=== PATIENT | male | born 1950 | race Caucasian/White ===

== ENCOUNTER → 2020-11-05 08:52 | Outpatient (CLI) | payer MEDICARE, SELFPAY ==
[2020-11-05 09:59] LABS: COVID19 -Nasal RAPID Negative (Negative)
== END ==
PROVIDERS: Visit Provider Physician Assistant
DX: Z11.59 Encounter for screening for other viral diseases (principal)
CPT/HCPCS: 87635

== ENCOUNTER 2020-11-06 06:14 | Inpatient (IN) | payer MEDICARE, SELFPAY ==
[2020-10-31 11:54] VITALS: BMI 21.9
[2020-11-06] VITALS (20 sets, daily range): BP systolic 85–135; BP diastolic 36–73; PULSE 63–77; RESP 10–19; TEMP 36.1–36.7; O2SAT 63–99; BMI 21.4
--- NOTE | 2020-11-06 | DI.RAD.S_ITS ---
PROCEDURE: XR LUMBAR SPINE 2-3V INDICATIONS: L3-4, L4-5,XLIF...... L5-S1 , TLIF TECHNIQUE: 3 views of the lumbar spine were acquired. COMPARISON: LAWRENCE Aguilar, L-SPINE 2-3 VIEWS, 04/13/2007, 16:05. FINDINGS: 3 spot fluoroscopic images demonstrating posterior spinal fixation at L3-L4, L4-L5, L5-S1, and interbody cage grafts. Hardware appears intact. Expected intraoperative alignment. Dictated by: Stephon Grace M.D. on 11/06/2020 at 13:10 Approved by: Stephon Grace M.D. on 11/06/2020 at 13:12
[2020-11-06] MEDS: LACTATED RINGERS 1,000 ML 42 ML IV ×2 (07:01→09:53)
[2020-11-06] MEDS: ACETAMINOPHEN 325 MG TABLET 975 MG PO (07:10)
--- NOTE | 2020-11-06 07:21 | PM.PREOP ---
Pre-operative Note COVID-19 COVID-19 status: Negative Result date/Date tested (Pos, Neg/Pending): 11/05/20 Interval Note History & Physical reviewed/Exam performed by Physician: Yes Changes to H&P: No
[2020-11-06] MEDS: CEFAZOLIN 2 GM/100 ML FROZ.PIGGY IV ×3 (07:57→20:32)
--- NOTE | 2020-11-06 08:30 | SUR.OPER ---
Right lateral on padded OR table. Head on pillow, gel axillary roll, pillow to support left arm. Legs flexed, pillows between legs, gel pad under down leg and ankle. Multiple passes of 3 inch cloth tape across shoulder, hip, upper and lower legs to secure patient on OR table.
--- NOTE | 2020-11-06 08:30 | SUR.OPER ---
Prone on spine table, head in foam head support, padded chest and pelvic supports, gel pad at knees, lower legs supported by pillows; nipples, genitalia and toes free of pressure, arms secured on foam padded arm boards at <90 degrees abduction. Tape over blanket at thigh secured to table.
[2020-11-06] MEDS: VANCOMYCIN 1,000 MG VIAL 1000 MG TOP (08:39)
[2020-11-06] MEDS: THROMBIN (RECOMBINANT) 5,000 UNIT VIAL 5000 UNIT TOP (08:39)
[2020-11-06] MEDS: BUPIVACAINE 0.5% (PF) 4 ML, MORPHINE-PF 4 MG, BUTORPHANOL 1 MG, fentaNYL 100 MCG INJ (08:40)
[2020-11-06] MEDS: SODIUM CHLORIDE 0.9% 1,000 ML, GENTAMICIN 80 MG IRR ×2 (08:41→08:42)
--- NOTE | 2020-11-06 13:07 | P.OP_ITS ---
Operative Date/Time/Diagnoses Date of procedure: 11/06/20 Time of procedure: 13:07 Pre-op diagnosis: Lumbar stenosis with radiculopathy Lumbar scoliosis Post-op diagnosis: same Procedure & Clinicians Procedure: L3-4, L4-5 anterior fusion with cages L3-4, L4-5 posterior fusion with cages L5-S1 TLIF (posterior/posterior interbody fusion) with cage. L3, L4, L5, S1 screws L3-4, L4-5, L5-S1 laminectomies Use of microscope Iliac crest bone graft aspirate Placement of epidural catheter Same procedure as scheduled: Yes Indications: [age] year old male with intractable pain from stenosis. They had failed conservative management and requested operative intervention. Risks and benefits of surgery were discussed and appropriate consents were obtained. Surgeon: Miguel Angel Saleh Culled Fruit Packer: Mariana Gonzalez Anesthesia Type: General Operative Notes Findings: None Closure Type: primary Specimen(s): none sent Prosthetic devices, grafts, tissues, transplants, or devices: NuVasive MAS Reline screws and XLIF cages Globus Rise cage Applied: catheter Estimated Blood Loss (mL): 50 Procedure in detail: Patient was brought to the operating room and intubated on the table. Time-out was performed. They were then rolled over to the lateral decubitus position with the [id number]. The table was bent and they were taped down in the correct position. X-rays were taken to confirm a true AP and lateral. Preoperative antibiotics were given. The left flank was prepped and draped in standard sterile fashion. Using fluoroscopy, a 3 cm incision was made above the iliac crest. We bluntly dissected down with Metzenbaum scissors and split the 3 abdominal muscle layers. We dissected out the retroperitoneal space and using finger guidance, brought our 1st dilator down to the psoas muscle. Using neuromonitoring and fluoroscopy, we placed it through the psoas onto the L4-5 disc space in an anterior position and gradually pulled the dilator posteriorly along the disc space. We placed our guidewire and measured our depth for the retractor. We then dilated with the next 2 dilators and then placed our retractor over the dilators. Position was confirmed with fluoroscopy and the retractor was locked down to the bar. We opened up the retractor and checked with neuro monitoring. We then placed the sherif and again checked with neuro monitoring. The retractor was opened further and the ALL retractor was placed. An annulotomy was performed. We then performed a complete diskectomy with ring curette, pituitary, box osteotome. A Hernandes was advanced across the disc space under fluoroscopy to release the lateral annulus on the opposite side. We then used sequentially larger trials and confirmed under fluoroscopy. An XLIF cage was packed with Osteocel bone graft and impacted into the L4-5 disc space with fluoroscopy for the anterior fusion at this level. The wound was irrigated. The retractor was closed down. The sherif was removed. We carefully removed the retractor with direct visualization to make sure there was no neurovascular or abdominal injury. We then moved up to the L3-4 level. We again dilated with neural monitoring and fluoroscopy. We placed a retractor and opened this up. We performed a complete diskectomy as well as lateral release. We trialed and placed another cage with bone graft and impacted into the L3-4 space for the anterior fusion at this level. The wound was irrigated. The retractor was closed down and removed with direct visualization to make sure there is no neurovascular or abdominal injury. Final x-rays were taken. The muscle fascia was closed, superficial tissue was closed. The skin was closed. Sterile dressing was placed. The patient was then rolled over on the well-padded prone position on the Wagner table. Using fluoroscopy for localization, a 10 cm incision incision was made to the well marked left side. Bovie used to split the fascia. We then percutaneously placed Jamshidi needles down the left pedicles of L3, L4, L5, and S1 using f luoroscopy and neural monitoring. We changed this to guidewires. We then tapped and placed our screw shanks. We then opened up our retractors and cleared off the posterolateral gutters and used a bur to decorticate the sacral ala and the transverse processes. We cleared medially to expose up the lamina to the spinous process. We brought a microscope. A laminectomy was performed at L5-S1 using a bur and Kerrison rongeur is. We cleared out the central canal and primarily worked on the subarticular and foraminal stenosis on the left side. We had to perform a facetectomy to open up the neural foramen but in the end the exiting L5 nerve root was free. We also removed the subarticular stenosis from the facet and freed up the S1 nerve root traversing through the canal. We then carefully retracted the dura medially. Bipolar was used for hemostasis. An annulotomy was performed with a scalpel. We then used a series of paddles and curettes and Johanny and pituitaries to perform a complete diskectomy at L5- S1. We then packed the disc space with bone graft and impacted a globus rise cage. We opened this up under fluoroscopic guidance. We then packed more bone graft in the disc space. We then moved our retractors up to L4-5. We cleared off the midline as well as the transverse process and decorticated the process of L4. We used a bur and Kerrisons to perform a complete laminectomy at L4-5. This was exceedingly tight. We had to carefully depressed the dura and reach across the to decompress the right side. We had to perform a near facetectomy to clear out the neural foramen. At the end of this we had adequately decompress the exiting L4 root as well as the traversing L5 and S1 roots and the central canal. We then moved the retractors up to L3-4. Again we cleared off the midline and to the transverse process and decorticated the process of L3. A laminectomy was performed at L3-4 with a bur and a Kerrison. We cleared the entire canal and carefully depressed the dura to reach the opposite side. We cleared up the exiting L3 roots as well as the traversing L4, L5 and S1 roots going down in the canal. Everything was confirmed to be decompressed with the ball probe. The wound was copiously irrigated. An epidural catheter was primed with 4mL of 0.5% bupivacaine, 100 mcg fentanyl, 4 mg Duramorph, 1 mg Stadol. The dura was depressed under the cephalad lamina with a ball probe and the epidural catheter was gently advanced 6 cm cephalad. We then placed our screw heads on. We measured and placed a antonino and locked it down. The wound was copiously irrigated. A small stab incision was made over the PSIS and a Jamshidi needle was placed into the iliac crest and several mL of bone marrow was aspirated. This was mixed with our locally harvested bone graft as well as the remaining Osteocel and placed in the posterolateral gutter for fusion at L3-4 and L4-5 as well as the posterolateral portion of the L5-S1 TLIF. The fascia was then closed. The epidural was then injected without resistance. The catheter was pulled and we closed more over the fascia. We then made a 10 cm incision on the right side with fluoroscopy. We used fluoroscopy and neural monitoring to percutaneously placed Jamshidi needles down the right pedicles of L3 through S1. We used guidewires and then tapped and placed our screws. We placed a antonino and locked it down. The wound was irrigated. The fascia was closed. The wounds were again irrigated. Vancomycin powder was placed in the wounds. The superficial and skin were closed. Sterile dressing was placed. The patient was then rolled over, extubated, brought to the recovery room with no complications. Complications: none Post-operative Condition: stable Disposition: PACU Plan for aftercare: Inpatient. Up with PT. Anticipate 2-3 nights.
[2020-11-06] MEDS: OXYCODONE IR 5 MG TABLET PO ×2 (14:06→15:02)
[2020-11-06] MEDS: LACTATED RINGERS 1,000 ML 125 ML IV ×2 (15:03→23:31)
--- NOTE | 2020-11-06 15:30 | PT-IP ANOTE ---
Received PT orders and reviewed chart. Pt has had unremitting postoperative hypotension. He reports significant pain, remains groggy, and is unable to meaningfully participate with PT. Will follow up 12/16 AM.
[2020-11-06] MEDS: HYDROMORPHONE 0.5 MG INJ IV (15:38)
[2020-11-06] MEDS: ROSUVASTATIN 10 MG TABLET 20 MG PO (17:00)
[2020-11-06] MEDS: CHOLECALCIFEROL (VITAMIN D3) 1,000 UNIT TABLET 1000 UNIT PO (17:00)
[2020-11-06] MEDS: diazePAM 5 MG TABLET PO (17:06)
--- NOTE | 2020-11-06 20:08 | PC.NURSE ---
Addendum entered by Dorothy Doss R.N. 11/06/20 20:51: pt vomited 300cc, administered reglan. Original Note: Late entry: assumed care. pt's pain was uncontrolled with 10mg oxy and 0.5 dilaudid. Administered Valium, pain down to 7/10 and reports it's tolerable. pt refused his dinner. call light in reach. IVF.quinn patent.
[2020-11-06] MEDS: GABAPENTIN 600 MG TABLET PO (20:33)
[2020-11-06] MEDS: DOCUSATE 100 MG CAPSULE PO (20:33)
[2020-11-06] MEDS: SENNOSIDES 8.6 MG TABLET 17.2 MG PO (20:33)
[2020-11-06] MEDS: atenoloL 50 MG TABLET PO (20:37)
[2020-11-06] MEDS: METOCLOPRAMIDE 10 MG/2 ML INJ IV (20:42)
[2020-11-07] MEDS: METOCLOPRAMIDE 10 MG/2 ML INJ IV ×2 (02:17→11:54)
[2020-11-07] MEDS: OXYCODONE IR 5 MG TABLET PO ×3 (02:23→20:06)
--- NOTE | 2020-11-07 02:38 | PC.NURSE ---
Episode of nausea followed with emesis, 200 mL greenish opaque. Given reglan IV and oxy PO prior to episode of emesis, PO oxy present in emesis. Pt opted to wait to take IV pain medications for nausea to subsides.
[2020-11-07] MEDS: CEFAZOLIN 2 GM/100 ML FROZ.PIGGY IV (03:36)
[2020-11-07 05:27] VITALS: BP 113/57; PULSE 66; RESP 16; TEMP 36.3; O2SAT 95
[2020-11-07 05:27] LABS: Hematocrit 32.5 % (41-53)
--- NOTE | 2020-11-07 07:56 | PM.PNPO.1 ---
Subjective Subjective Date Patient Seen: 11/07/20 Time Patient Seen: 07:56 Interval history: He is doing better than yesterday. Pain is under very good control right now with oral medication. Exam Vital Signs (past 8 hours): - 11/07/20 05:27 Temperature 97.4 F L Pulse Rate 66 Respiratory Rate 16 Blood Pressure 113/57 L Pulse Oximetry 95 Oxygen Delivery Method Room Air Oxygen Flow Rate 2 Const Orientation: alert and oriented x3 Back/Spine/Pelvis Other: Minimal dry drainage. 5/5 motor both lower extremities except for mild 5-/5 left hip flexor Objective Labs Result Diagrams: 11/07/20 05:00 Labs: Laboratory Results - last 24 hr 11/07/20 05:00 Hgb 11.0 L Hct 32.5 L PFSH Medical History (Updated 10/31/20 @ 12:24 by Yaz Priest RN) Actinic keratosis Arthritis CAD (coronary artery disease) Easy bruisability Erectile dysfunction GERD (gastroesophageal reflux disease) HLD (hyperlipidemia) HTN (hypertension) Hx of coronary angiogram (12/2007) Impaired fasting glucose Myocardial infarction (2007) Skin cancer Surgical History (Updated 10/31/20 @ 12:21 by Yaz Priets RN) History of arthroplasty of right shoulder History of arthroscopy of right shoulder History of surgery History of tonsillectomy History of vasectomy Hx of cardiac cath (12/2007) Hx of heart artery stent (2007) Social History household members: none Smoking Status: Former smoker alcohol intake: current Assessment & Plan Post-op Postoperative Procedures: Procedures Operation Date: 11/06/20 07:45 Actual Procedures Side Surgeon p L3-S1 laminectomies & instrumented anterior/posterior fusion w/ bone graft Miguel Angel Saleh MD He is doing well. Were going to get him up with physical therapy today. Anticipate discharge home tomorrow or the next day.
[2020-11-07 07:57] VITALS: BP 120/72; PULSE 69; RESP 15; TEMP 36.6; O2SAT 99
[2020-11-07] MEDS: EZETIMIBE 10 MG TABLET PO (08:08)
[2020-11-07] MEDS: ONDANSETRON 4 MG/2 ML INJ IV (08:08)
[2020-11-07] MEDS: diazePAM 5 MG TABLET PO ×3 (08:08→21:00)
[2020-11-07] MEDS: DOCUSATE 100 MG CAPSULE PO ×2 (08:09→20:03)
--- NOTE | 2020-11-07 09:48 | PT.IIE ---
Current Diagnoses Other forms of scoliosis, lumbar region (11/06/20) Spinal stenosis, lumbar region with neurogenic claudication (11/06/20) Surgery Performed Operation Date: 11/06/20 07:45 Actual Procedures p L3-S1 laminectomies & instrumented anterior/posterior fusion w/ bone graft - Miguel Angel Saleh MD Surgical History (Last Updated 10/31/20 @ 12:21 by Yaz Priest, RN) History of arthroplasty of right shoulder History of arthroscopy of right shoulder History of surgery History of tonsillectomy History of vasectomy Hx of cardiac cath (12/2007) Hx of heart artery stent (2007) Medical History (Last Updated 10/31/20 @ 12:24 by Yaz Priest RN) Actinic keratosis Arthritis CAD (coronary artery disease) Easy bruisability Erectile dysfunction GERD (gastroesophageal reflux disease) HLD (hyperlipidemia) HTN (hypertension) Hx of coronary angiogram (12/2007) Impaired fasting glucose Myocardial infarction (2007) Skin cancer Physical Therapy Inpatient Evaluation/Re-Eval M1 PT/OT-IP Prior Functional Status Start: 11/06/20 15:10 Freq: NEEDED Status: Active Protocol: Document 11/07/20 09:48 AB (Rec: 11/07/20 12:12 AB [id number]) Medical Review Prior Functional Status Medical History Reviewed Yes Communication able to make needs known Mobility and Gait pt stated that he is independent with all mobilities and ambulation wtihout AD Social History Household Members none Living Arrangements House Number of Floors (Floors) One Floor Number of Stairs To Enter/Railing? 3 steps to enter without rails Home Environment High Toilet,Walk in Shower Home Equipment Front Wheel Walker,Straight Cane Additional Social History Comment has a recliner that he can sleep on if needed has an adjustable bed pt stated that he hired a caregiver/DELIVERY RN to stay with him for 2 days to assist him but can be longer if needed; stated that his son also will check on him. M2 PT-IP Current Condition Start: 11/06/20 15:10 Freq: NEEDED Status: Active Protocol: Document 11/07/20 09:48 AB (Rec: 11/07/20 12:12 AB [id number]) Physical Therapy Current Condition Current Condition Evaluation Date 11/07/20 Treatment Diagnosis s/p L3-4/L4-5 anterior/post. fusion; difficulties in walking Onset Date 12/15/20 Precautions Lumbar Precautions Log Roll,No Twisting,Limit Bending,Lifting Restriction of 10 lbs,Gait Belt above Incisional Area M3 PT-IP Subjective Start: 11/06/20 15:10 Freq: NEEDED Status: Active Protocol: Document 11/07/20 09:48 AB (Rec: 11/07/20 12:12 AB [email or web address]) Subjective Physical Therapy Visit Type Type Initial Evaluation Visit Start Time 09:48 Visit Stop Time 10:22 Total Visit Minutes 34 Number of HOME CONNECT LPN Visits 0 Physical Therapy Visit Comments Patient Comments pt is agreeable to do PT Therapy Pain Assessment Pain When Pain Assessed At Rest Pain Present Pain Present Pain Reported Location Low Back Intensity 5 Scale Used Numeric (0 - 10) Pain Management Techniques Distraction,Modification of Treatment,Re-positioning, Timing of Activity with Medications M4 PT-IP Mobility and Gait Start: 11/06/20 15:10 Freq: NEEDED Status: Active Protocol: Document 11/07/20 09:48 AB (Rec: 11/07/20 12:12 AB [email or web address]) PT-Bed Mobility Assessment Rolling Type of Rolling Log Rolling Level of Assist Standby Assistance Supine to Sit Supine to Sit Minimal Assistance,1 Person Assistance PT-Transfer Assessment Sit to and From Stand Sit to and from Stand Contact Guard Assistance,Use of Upper Extremities Equipment Transfer Assistive Device Gait Belt,Front Wheeled Walker Orthotic/Prosthetic Devices or Brace: No Transfers Transfer Destination Chair Transfer Technique ambulated using FWW Transfer Ability Level of Assist Contact Guard Assistance Comments Mobility Comments educated pt on back precautions and log roll bed mobility. completed supine to sit min A and cues. pt was able to sit on EOB SBA. completed sit to stand CGA and cues and ambulated in room using FWW CGA 50 ft. pt agreed to sit up on chair. positioned on chair. call light and table placed within reach. Gait Assessment Gait Gait Assistance Required: Contact Guard Assist Distance (Feet) 50 Able to Maintain Weight Bearing Status Yes During Gait Assistive Devices Assistive Device Gait Belt,Front Wheeled Walker Orthotic/Prosthetic Devices or Brace: No Gait Deviations General Gait Pattern Antalgic,Decreased Stride Length,Decreased Feet Clearance Factors Limiting Gait Function Factors Limiting Gait Function Decreased Activity Tolerance, Decreased Strength,Limited Range of Motion,Pain,Poor Balance PT-Balance Assessment Sitting Balance and Reactions Static Sitting Balance Ability Good Dynamic Sitting Balance Ability Good Standing Balance and Reactions Static Standing Balance Ability Fair Dynamic Standing Balance Ability Fair Device Used FWW M5 PT-IP Objective Assessments Start: 11/06/20 15:10 Freq: NEEDED Status: Active Protocol: Document 11/07/20 09:48 AB (Rec: 11/07/20 12:12 AB [id number]) Orientation Orientation/Cognition Level of Alertness Alert Orientation Name,Place,Situation Language Function Ability No Deficits Noted Safety Awareness Understands Safety Issues Memory Description No Deficits Noted Gross Range of Motion Lower Extremity ROM Assessment Within Functional Limits Strength Lower Extremity Strength Assessment Within Functional Limits Sensation Assessment Sensation Gross Sensation WNL Muscle Tone Muscle Tone WNL Yes M6 PT-IP Treatment Start: 11/06/20 15:10 Freq: NEEDED Status: Active Protocol: Document 11/07/20 09:48 AB (Rec: 11/07/20 12:12 AB [email or web address]) Physical Therapy Treatment Education Education Provided Precautions,Weight Bearing Status,Post-Op Packet,Safety M7 PT-IP Assessment and Plan Start: 11/06/20 15:10 Freq: NEEDED Status: Active Protocol: Document 11/07/20 09:48 AB (Rec: 11/07/20 12:12 AB [id number]) PT Summary Assessment and Plan Potential Rehabilitation Potential Good Status of Condition at Evaluation Stable Summary Impairments Pain,ROM,Strength,Balance,Bed Mobility,Transfers,Gait, Activity Tolerance Assessment Summary pt requiring CGA to min A with mobility and plans to go home with a caregiver to assist him. will conduct caregiver training if appropriate and pt has to complete stair climbing training prior to d/c . will continue to assess progress. Goals Bed Mobility Goal Independent Transfer Goal Independent,Front Wheeled Walker Gait Goal Independent,Front Wheel Walker Gait Distance 200 Other Goals up/down 3 steps using SPC SBA Days to Meet Goals 5 Frequency of Treatment Frequency Of Treatment Twice a Day Treatment Plan Physical Therapy Treatment Plan Bed Mobility Training,Transfer Training,Gait Training, Therapeutic Exercise,Balance Retraining,Post Op Education, Discharge Planning,Hot or Cold Pack,Neuromuscular Re-ed, Coordination Retraining,Manual Therapy Other Recommendations and Next Treatment ambulation, bed mobility, Focus stair climbing Recommendations To Nursing Amount of Assist Needed 1 Person Assist Discharge Recommendations PT Discharge Recommendations Home with Assistance Transportation Needs at Discharge Private Vehicle
[2020-11-07 11:05] VITALS: BP 113/55; PULSE 64; RESP 14; TEMP 36.3; O2SAT 96
[2020-11-07] MEDS: ACETAMINOPHEN 325 MG TABLET 975 MG PO ×2 (11:54→21:00)
--- NOTE | 2020-11-07 13:15 | PT.IPTN ---
Current Diagnoses Other forms of scoliosis, lumbar region (11/06/20) Spinal stenosis, lumbar region with neurogenic claudication (11/06/20) Surgery Performed Operation Date: 11/06/20 07:45 Actual Procedures p L3-S1 laminectomies & instrumented anterior/posterior fusion w/ bone graft - Miguel Angel Saleh MD Physical Therapy Treatment Note M2 PT-IP Current Condition Start: 11/06/20 15:10 Freq: NEEDED Status: Active Protocol: Document 11/07/20 09:48 AB (Rec: 11/07/20 12:12 AB [email or web address]) Physical Therapy Current Condition Current Condition Evaluation Date 11/07/20 Treatment Diagnosis s/p L3-4/L4-5 anterior/post. fusion; difficulties in walking Onset Date 11/06/20 Precautions Lumbar Precautions Log Roll,No Twisting,Limit Bending,Lifting Restriction of 10 lbs,Gait Belt above Incisional Area M3 PT-IP Subjective Start: 11/06/20 15:10 Freq: NEEDED Status: Active Protocol: Document 11/07/20 13:15 AB (Rec: 11/07/20 15:29 AB [email or web address]) Subjective Physical Therapy Visit Type Type Treatment Note Visit Start Time 13:15 Visit Stop Time 13:52 Total Visit Minutes 42 Number of BOTTLER HELPER Visits 0 Physical Therapy Visit Comments Patient Comments pt is agreeable to do PT Therapy Pain Assessment Pain When Pain Assessed At Rest M4 PT-IP Mobility and Gait Start: 11/06/20 15:10 Freq: NEEDED Status: Active Protocol: Document 11/07/20 13:15 AB (Rec: 11/07/20 15:29 AB [id number]) PT-Bed Mobility Assessment Rolling Type of Rolling Log Rolling Level of Assist Independent Supine to Sit Supine to Sit Standby Assistance Sit to Supine Sit to Supine Standby Assistance PT-Transfer Assessment Sit to and From Stand Sit to and from Stand Standby Assistance Equipment Transfer Assistive Device Gait Belt,Front Wheeled Walker Orthotic/Prosthetic Devices or Brace: No Comments Mobility Comments completed supine to sit log roll SBA. completed ambulation in room using FWW SBA ~ 20 ft and agreed to ambulate in the hallway and completed ~ 150 ft to the stairs using FWW SBA . completed up/down steps using SPC CGA to min A. educated pt's son on how to assist pt and pt completed stairs again with his son assisting him. pt ambulated back to his room SBA. went back to bed and completed log roll sit to supine SBA. educated son on how to don/ doff safety belt and how to assist pt. positioned pt in bed. call light and table placed within reach. Gait Assessment Gait Gait Assistance Required: Standby Assistance Distance (Feet) 150 Able to Maintain Weight Bearing Status Yes During Gait Assistive Devices Assistive Device Gait Belt,Front Wheeled Walker Orthotic/Prosthetic Devices or Brace: No Gait Deviations General Gait Pattern Decreased Stride Length, Decreased Feet Clearance Factors Limiting Gait Function Factors Limiting Gait Function Decreased Activity Tolerance, Decreased Strength,Pain,Poor Balance Comments Gait Comments pls refer to mobility section for details Stair Climbing Assessment Evaluation Level of Assist On Stairs Contact Guard Assistance, Minimal Assistance Devices Stair Climbing Assistive Devices Straight Cane Technique/Endurance Stair Climbing Technique Step to Step Number of Steps Climbed 3 Stair Climbing Set # Repetitions (reps) 2 Comments Stair Climbing Comments pls refer to mobility section M5 PT-IP Objective Assessments Start: 11/06/20 15:10 Freq: NEEDED Status: Active Protocol: Document 11/07/20 09:48 AB (Rec: 11/07/20 12:12 AB [id number]) Orientation Orientation/Cognition Level of Alertness Alert Orientation Name,Place,Situation Language Function Ability No Deficits Noted Safety Awareness Understands Safety Issues Memory Description No Deficits Noted Gross Range of Motion Lower Extremity ROM Assessment Within Functional Limits Strength Lower Extremity Strength Assessment Within Functional Limits Sensation Assessment Sensation Gross Sensation WNL Muscle Tone Muscle Tone WNL Yes M6 PT-IP Treatment Start: 11/06/20 15:10 Freq: NEEDED Status: Active Protocol: Document 11/07/20 13:15 AB (Rec: 11/07/20 15:29 AB [email or web address]) Physical Therapy Treatment Education Education Provided Precautions,Safety M7 PT-IP Assessment and Plan Start: 11/06/20 15:10 Freq: NEEDED Status: Active Protocol: Document 11/07/20 13:15 AB (Rec: 11/07/20 15:29 AB [email or web address]) PT Summary Assessment and Plan Potential Rehabilitation Potential Good Summary Impairments Pain,ROM,Strength,Balance, Coordination,Sensation,Tone, Cognition,Bed Mobility, Transfers,Gait,Activity Tolerance Progress Towards Goals Progressing Toward Goals Assessment Summary pt is progressing well with mobility and requires SBA. caregiver training conducted with son assisting pt with stairs and completed safely. pt plans to go home with a caregiver and son will be able to assist when needed but cannot stay with pt. pt may go home when medically stable. Goals Bed Mobility Goal Independent Transfer Goal Independent,Front Wheeled Walker Gait Goal Independent,Front Wheel Walker Gait Distance 200 Other Goals up/down 3 steps using SPC SBA Days to Meet Goals 5 Frequency of Treatment Frequency Of Treatment Twice a Day Treatment Plan Physical Therapy Treatment Plan Bed Mobility Training,Transfer Training,Gait Training, Therapeutic Exercise,Balance Retraining,Post Op Education, Discharge Planning,Hot or Cold Pack,Neuromuscular Re-ed, Coordination Retraining,Manual Therapy Other Recommendations and Next Treatment ambulation, bed mobility, Focus stair climbing Recommendations To Nursing Amount of Assist Needed 1 Person Assist Discharge Recommendations PT Discharge Recommendations Home with Assistance Transportation Needs at Discharge Private Vehicle
--- NOTE | 2020-11-07 15:23 | PC.NURSE ---
Ortho: Nausea this am, not able to eat, zofran given and pt reported it was helpful. Then later at lunch had nausea again and reglan given. he was able to take bites and said med was effective. Also given tylenol at lunch as he was nervous to take any oxy in case that made him feel sick to his stomach this am. later however after PT he decided to take some oxy and he reported it did help for the pain and he had no nausea with it. Having some spasms as well and received valium po x2 to help with same and nausea. he reported medication was effective. Was able to get up with PT. Tellez out and no void yet. Resting quietly at this time.
--- NOTE | 2020-11-07 15:37 | CM.DANOTE ---
Patient is a 70 year old male who was admitted on 11/06/20 for TLIF. Pt has MCR and [employer] for insurance and his PCP is not listed. EMR was reviewed. Per Ortho MD, pt tolerated procedure well and doing better and pain more controlled and likely home Thurs or Fri pending PT and progress. Per PT, recommending home with assist and POV. SW met briefly bedside with pt and he confirms he lives on [address] alone but has local supportive son on [place] and pt is independent with ADL's and fairly active at baseline and denies any use of DME for ambulation. Pt confirms that he has already hired a CG to assist at d/c and son plans to also provide assist at d/c and can likely provide transport home. Pt does not anticipate any further needs at d/c and preference is home in next day or two. Plan: SW to follow closely to confirm safe plan of home with CG and son assist and any further identified discharge planning needs. VELMA Cid Discharge Planning/Care Management CM Discharge Assessment Start: 11/07/20 15:35 Freq: Status: Active Protocol: Document 11/07/20 15:36 BF (Rec: 11/07/20 15:37 BF [id number]) Discharge Planning Assessment Assigned Unloader Operator VELMA Steward DPOA/Assigned Designee Name chnog Hendrickson Contact Information [phone] Advance Directives? Yes Advance Directives on File No History Provided By Patient,Medical Record Has Patient been admitted in last 30 No days? Prior Living Arrangements House Household Members none Type of transporation used prior to Drives own vehicle admit Independent with ADL's Yes Is patient alert and oriented? Yes Caregiver for Another No Patient/Family Preference OP PT Therapy Barriers to Discharge No Discharge Plan Home Community Services Physical Therapy Transportation Arrangement Son likely can provide transport at d/c Referrals Initiated None needed Whiteboard Updated in Patient Room with Yes name and ext. # of Unloader Operator Review Status In Process Please Provide Date Initial DC 11/07/20 Assessment Was Performed Next Review Type Continued Stay Review Pre-Anesthesia Assessment Start: 10/31/20 11:54 Freq: Status: Complete Protocol: Document 10/31/20 11:54 CAB (Rec: 10/31/20 12:45 CAB [id number]) Pre-Anesthesia Assessment Preferred Name Sudhakar Patient Information Reviewed Via Phone Assessment Assessment Completed With Patient Comment Labs/EKG done per pt 10/23/20 @ [facility], not here, COVID screen @ 11/05/20 Primary Care Provider Gracie Yeager Seen Specialist in Last 12 Months Yes Specialist Seen Rural Carrier,Dental Prosthetist, Orthopedist Primary Language Slovak Naval Gunfire Liaison Officer Required No Height 170.18 cm Weight 63.503 kg Body Mass Index (BMI) 21.9 Hearing Ability Normal Visual Assist Glasses Dentition Type Partial- Lower Barriers to Learning None Hx Anesthesia Reactions No Hx Family Anesthesia Reaction No Hx Malignant Hyperthermia No Hx Blood Transfusions No Anesthesia Review Requested Yes: Reviewed prior to scheduling alcohol intake current Smoking Status Former smoker Tobacco type cigarettes how long ago did patient quit smoking Quit age 20 Substance Use Type does not use Pain Present Pain Reported Musculoskeletal Symptoms Abnormal Gait,Back Pain, Difficulty Walking,Joint Pain, Numbness,Radiating Pain into Limb,Tingling History of Falling (Recent or History of No ) Patient is completely paralyzed or No completely immobile Mental Status Oriented to own ability Is patient on oxygen? No Does patient have ZAPIEN/SOB No Hx Sleep Apnea No Currently Taking a Beta Francis Yes: Carvedilol Can You Climb a Flight of Stairs Without Yes SOB Hx Chest Pain No Hx SOB No Hx Syncope or Dizziness No Anti-Coagulant Therapy Yes: Plavix-advised to hold 7 days prior per cardiology Has a Rural Carrier Yes: Dr. Connors-visit 08/03/20 Cardiac Testing No Hx Pacemaker/ICD No Pacemaker Rep Required? No Cardiac Clearance Received Not Applicable Comment Cardiac records scanned Diet Type At Home Regular dysphagia No Gastrointestinal Symptoms Reflux Urinary Catheter Present No Hx Urinary Self Catheterization No Diabetes No Hx Drug Resistant Organism No Presence of External or Internal Medical Yes: Right shoulder, cardiac Devices stent Have you had any close contact with No someone diagnosed with COVID-19? Marital Status Single Lives With none Prior Living Arrangements House Number of Floors (Floors) 3 or More Floors Support System Child/Children Does the Patient Have Assistance After Yes Surgery Patient Discharge Plan Description Return Home Comment Pt advised 3-4 day length of stay per surgeon Additional comment Marii ac [place] Feels Safe in Current Environment Yes Been Physically Hurt or Threatened By a No Person in Current Environment Do you have thoughts of harming yourself None or others? Are you currently considering suicide? No Do you have a plan to hurt yourself or No Plan others? Do You Have Any Spiritual Beliefs That No May Affect Your HC Choices? Do You Have Any Cultural Practices That No May Affect Your HC Choices? Who Can We Speak to About Patient's Care Family, friends Identifying Code for Release of Patient Declines to issue Information Health Care Proxy/Next of Kin Emeka (son) Health Care Proxy Emergency Contact Name Emeka (son) Emergency Contact Advance Directives? Yes: Unsure whereabouts Power of Finishing Range Operator No PAC Instructions Durable medical equipment, Medications to take/avoid, Nasal antibiotic,No ETOH/ petroleum product on skin DOS, NPO,Pre-surgical wash,Sensory aids,Sturdy shoes/comfortable clothes,Do not bring valuables and remove jewelry
[2020-11-07 15:45] VITALS: BP 139/67; PULSE 79; RESP 18; TEMP 36.9; O2SAT 98
--- NOTE | 2020-11-07 15:49 | OT.IP.EVAL ---
Current Diagnoses Other forms of scoliosis, lumbar region (11/06/20) Spinal stenosis, lumbar region with neurogenic claudication (11/06/20) Surgery Performed Operation Date: 11/06/20 07:45 Actual Procedures p L3-S1 laminectomies & instrumented anterior/posterior fusion w/ bone graft - Miguel Angel Saleh MD Past Medical History (Last Updated 10/31/20 @ 12:24 by Yaz Priest, RN) Actinic keratosis Arthritis CAD (coronary artery disease) Easy bruisability Erectile dysfunction GERD (gastroesophageal reflux disease) HLD (hyperlipidemia) HTN (hypertension) Hx of coronary angiogram (12/2007) Impaired fasting glucose Myocardial infarction (2007) Skin cancer Surgical History (Last Updated 10/31/20 @ 12:21 by Yaz Priest RN) History of arthroplasty of right shoulder History of arthroscopy of right shoulder History of surgery History of tonsillectomy History of vasectomy Hx of cardiac cath (12/2007) Hx of heart artery stent (2007) Occupational Therapy Inpatient Evaluation/Re-Eval M1 PT/OT-IP Prior Functional Status Start: 11/07/20 17:51 Freq: NEEDED Status: Active Protocol: Document 11/07/20 15:16 [facility] (Rec: 11/07/20 18:31 [facility] [id number]) Medical Review Prior Functional Status Medical History Reviewed Yes Communication able to make needs known Mobility and Gait pt stated that he is independent with all mobilities and ambulation without AD Activities of Daily Living and IADL's Pt needing increased time to do ADL's, and able to do medications and bilss on his own Social History Household Members none Living Arrangements House Number of Floors (Floors) One Floor Number of Stairs To Enter/Railing? 3 steps to enter without rails Home Environment High Toilet,Walk in Shower Home Equipment Front Wheel Walker,Straight Cane Additional Social History Comment has a recliner that he can sleep on if needed has an adjustable bed pt stated that he hired a caregiver/SALES ACCOUNT COORDINATOR to stay with him for 2 days to assist him but can be longer if needed; stated that his son also will check on him. M2 OT-IP Current Condition Start: 11/07/20 17:51 Freq: Status: Active Protocol: Document 11/07/20 15:16 [facility] (Rec: 11/07/20 18:31 [facility] [id number]) Occupational Therapy Current Condition Current Condition Evaluation Date 11/07/20 Treatment Diagnosis s/p L3-S1 laminectomies and instrumental ant/post. fusion w/bone graft Diagnosis Onset Date 11/06/20 Post Operative Precautions Lumbar Precautions Log Roll,No Twisting,Limit Bending,Lifting Restriction of 10 lbs,Gait Belt above Incisional Area M3 OT- IP Subjective and Pain Start: 11/07/20 17:51 Freq: Status: Active Protocol: Document 11/07/20 15:16 [facility] (Rec: 11/07/20 18:31 [facility] [id number]) OT- Subjective Occupational Therapy Visit Type Type Initial Evaluation Visit Start Time 15:16 Visit Stop Time 15:49 Total Visit Minutes 33 Occupational Therapy Visit Comments Patient Comments Pt agreed to work with OT, pt' s son in the room for OT eval. Patient/Caregiver Goals TO go home. OT Pain Assessment Pain When Pain Assessed During Mobility Pain Present Pain Present Pain Reported Location Low Back Intensity 4 Scale Used Numeric (0 - 10) M4 OT- IP ADL's Start: 11/07/20 17:51 Freq: Status: Active Protocol: Document 11/07/20 15:16 [facility] (Rec: 11/07/20 18:31 [facility] [id number]) OT QLF-[id number]-Motozpt Comments OT Self-Feeding Comments NOt at meal time. OT ADL-Grooming General Evaluation Grooming Ability Standby Assistance Areas Needing Assistance Retrieving/Set-up of Grooming Items Comments OT Grooming Comments VC to keep the FWW in front of him. OT ADL-Oral Care General Eval Oral Care Ability Standby Assistance Comments Oral Care Comments VC to spit into a cup versus hinge at his hips in order to lean and spit into the sink. OT ADL-Dressing General Eval Lower Body Dressing Ability Maximum Assistance Areas Needing Assistance Socks Assistive Devices Dressing Assistive Devices Scrap Crane Operator,Sock Aid Comments OT Dressing Comments Able to educate use of service vehicle operator and sock aid and able to show fair understanding, pt would benefit from more practice with LB dressing equipment. OT ADL-Toileting General Evaluation Toileting Ability Standby Assistance Comments OT Toileting Comments Pt able to appriopriately reach to wipe when simulated wiping after a bowel movement with good follow through of back precautions. OT ADL-Bathing Comments OT Bathing Comments TO shower tomorrow to best determine whether pt needs a shower chair. M5 OT- IP IADL's Start: 11/07/20 17:51 Freq: Status: Active Protocol: Document 11/07/20 15:16 [facility] (Rec: 11/07/20 18:31 [facility] [id number]) OT-Instrumental Activities of Daily Living Home Safety Awareness Awareness of Need for Assistance at Home Good Awareness Ability to Problem Solve Emergency Able to Problem Solve Situations Medication Management Medication Management Comments Pt a bit groggy and aware to double check or have supervision when taking his medications. Money Management Money Management Comments Pt a bit groggy and aware to double check or have supervision when paying bills. Meal Preparation Meal Preparation Caregiver Provides Assist Manager Green Manager Green Caregiver Provides Assist M6 OT- IP Functional Cognition Start: 11/07/20 17:51 Freq: Status: Active Protocol: Document 11/07/20 15:16 [facility] (Rec: 11/07/20 18:31 [facility] [id number]) Cognitive Factors Limiting Selfcare Function Cognitive Ability Level of Alertness Alert Patient Orientation Name,Age,Birthday,Month,Date, Year,Day of Week,Place, Situation Attention Span Ability Capable of Focused Attention, Capable of Sustained Attention Ability to Follow Commands Able to Follow One Step Commands Memory Description No Deficits Noted Safety Awareness No Deficits Noted Problem Solving Ability Needs Assist to Identify Solutions Cognitive Comments Cognitive Assessment Comments Pt not able to recall all his back precautions. Pt getting a confused as trying to put another sock on the same side. Pt forgetting the walker and initially trying to walk away from it after doing grooming needs. OT- Vision and Hearing OT- Hearing Assessment OT- Hearing Assessment WFL M7 OT- IP Mobility and Balance Start: 11/07/20 17:51 Freq: Status: Active Protocol: Document 11/07/20 15:16 [facility] (Rec: 11/07/20 18:31 [facility] [id number]) OT- Bed Mobility Assessment Rolling Type of Rolling Roll to Left Level of Assistance Standby Assistance Supine to Sit Supine to Sit Assist Standby Assistance Sit to Supine Sit to Supine Assist Standby Assistance OT-Transfer Assessment Sit to and From Stand Sit to and from Stand Standby Assistance Transfers Transfer Ability Standby Assistance Technique Transfer Destination Bed,Toilet Transfer Technique Stand Step Pivot Devices Transfer Assistive Devices Gait Belt,Front Wheeled Walker Comments Mobility Comments SBA with FWW, vc for safety awareness to keep the FWW close. OT- Balance Assessment Sitting Balance and Reactions Static Sitting Balance Ability Normal Dynamic Sitting Balance Ability Good Standing Balance and Reactions Static Standing Balance Ability Good M8 OT- IP Objective Assessments Start: 11/07/20 17:51 Freq: Status: Active Protocol: Document 11/07/20 15:16 [facility] (Rec: 11/07/20 18:31 [facility] [id number]) OT-Muscle Tone Assessment Muscle Tone WNL Yes M9 OT- IP Assessment and Plan Start: 11/07/20 17:51 Freq: Status: Active Protocol: Document 11/07/20 15:16 [facility] (Rec: 11/07/20 18:31 [facility] [id number]) OT Summary Assessment and Plan Potential Rehabilitation Potential Excellent Analytic Complexity at Evaluation Low Summary OT Impairments Functional Cognition, Functional Mobility,Grooming, Dressing,Toileting,Bathing, Toilet Transfers,Shower Transfers Progress Towards Goals Progressing Toward Goals Assessment Summary Pt low complexity and main barrier is a little groggy and not recalling his back precautions. Pt to have hired assist at home initially. To go over shower needs tomorrow for OT and looking to go home. Goals Grooming Goal Independent Dressing Goal Independent Toileting Goal Independent Bathing Goal Independent Toilet Transfer Goal Independent Shower Transfer Goal Independent Patient/Caregiver Education Goal Demonstrate Post-Op Precautions Days to Meet Goals 2 Frequency of Treatment Frequency Of Treatment Once a Day Treatment Plan OT Treatment Plan ADL Training,Functional Cognition Training,Functional Mobility,Patient/Family Education,Discharge Planning Other Treatment Recommendations and Next shower Treatment Focus Discharge Recommendations OT Discharge Recommendations Home with Assistance Home Equipment Needs Shower chair? service vehicle operator, long handled shoe horn, sock aid Transportation Needs at Discharge Private Vehicle
[2020-11-07] MEDS: ROSUVASTATIN 10 MG TABLET 20 MG PO (17:05)
[2020-11-07] MEDS: CHOLECALCIFEROL (VITAMIN D3) 1,000 UNIT TABLET 1000 UNIT PO (17:05)
[2020-11-07] MEDS: atenoloL 50 MG TABLET PO (20:03)
[2020-11-07] MEDS: GABAPENTIN 600 MG TABLET PO (20:03)
[2020-11-07] MEDS: SENNOSIDES 8.6 MG TABLET 17.2 MG PO (20:03)
[2020-11-07 20:12] VITALS: BP 148/80; PULSE 103; RESP 18; TEMP 37.2
[2020-11-07 21:00] VITALS: TEMP 37.2
[2020-11-08] VITALS (8 sets, daily range): BP systolic 125–147; BP diastolic 67–77; PULSE 72–86; RESP 16–20; TEMP 36.6–38.4; O2SAT 95–97
[2020-11-08] MEDS: ACETAMINOPHEN 325 MG TABLET 975 MG PO ×2 (05:09→17:18)
[2020-11-08] MEDS: DOCUSATE 100 MG CAPSULE PO ×2 (09:22→20:51)
[2020-11-08] MEDS: EZETIMIBE 10 MG TABLET PO (09:22)
[2020-11-08] MEDS: OXYCODONE IR 5 MG TABLET PO ×3 (09:22→20:52)
--- NOTE | 2020-11-08 09:22 | P.PN_ITS ---
Subjective Subjective Date Patient Seen: 11/08/20 Time Patient Seen: 08:00 Interval history: Pain is about 8/10 in back. He did well with PT yesterday, still 1 person assist. Exam Vital Signs (past 8 hours): - 11/08/20 04:50 11/08/20 05:09 11/08/20 05:57 Temperature 101.2 F H 101.2 F H 98.4 F Pulse Rate 85 Respiratory Rate 20 Blood Pressure 134/68 Pulse Oximetry 95 11/08/20 07:25 Temperature 98 F Pulse Rate 79 Respiratory Rate 16 Blood Pressure 125/68 Pulse Oximetry 96 Oxygen Delivery Method Room Air Oxygen Flow Rate 0 Const Orientation: alert and oriented x3 Back/Spine/Pelvis Other: mild dry drainage. 5/5 motor BLE except 5-/5 L hip flexor Objective Labs Result Diagrams: 11/07/20 05:00 [facility] Medical History (Updated 10/31/20 @ 12:24 by Yaz Priest RN) Actinic keratosis Arthritis CAD (coronary artery disease) Easy bruisability Erectile dysfunction GERD (gastroesophageal reflux disease) HLD (hyperlipidemia) HTN (hypertension) Hx of coronary angiogram (12/2007) Impaired fasting glucose Myocardial infarction (2007) Skin cancer Surgical History (Updated 10/31/20 @ 12:21 by Yaz Priest RN) History of arthroplasty of right shoulder History of arthroscopy of right shoulder History of surgery History of tonsillectomy History of vasectomy Hx of cardiac cath (12/2007) Hx of heart artery stent (2007) Social History household members: none Smoking Status: Former smoker alcohol intake: current Assessment & Plan Post-op Postoperative Procedures: Procedures Operation Date: 11/06/20 07:45 Actual Procedures Side Surgeon p L3-S1 laminectomies & instrumented anterior/posterior fusion w/ bone graft Miguel Angel Saleh MD Work on pain control. Review of the MAR shows he just had one oxycodone at 10P M. He would like to DC today if possible, but he needs better pain control and to be independent with mobility.
--- NOTE | 2020-11-08 10:22 | OT.IP.TRT ---
Current Diagnoses Other forms of scoliosis, lumbar region (11/06/20) Spinal stenosis, lumbar region with neurogenic claudication (11/06/20) Surgery Performed Operation Date: 11/06/20 07:45 Actual Procedures p L3-S1 laminectomies & instrumented anterior/posterior fusion w/ bone graft - Miguel Angel Saleh MD Occupational Therapy Treatment Note M2 OT-IP Current Condition Start: 11/07/20 17:51 Freq: Status: Active Protocol: Document 11/07/20 15:16 [facility] (Rec: 11/07/20 18:31 [facility] [id number]) Occupational Therapy Current Condition Current Condition Evaluation Date 11/07/20 Treatment Diagnosis s/p L3-S1 laminectomies and instrumental ant/post. fusion w/bone graft Diagnosis Onset Date 11/06/20 Post Operative Precautions Lumbar Precautions Log Roll,No Twisting,Limit Bending,Lifting Restriction of 10 lbs,Gait Belt above Incisional Area M3 OT- IP Subjective and Pain Start: 11/07/20 17:51 Freq: Status: Active Protocol: Document 11/08/20 10:26 [facility] (Rec: 11/08/20 10:32 [facility] [id number]) OT- Subjective Occupational Therapy Visit Type Type Treatment Note Visit Start Time 10:11 Visit Stop Time 10:22 Total Visit Minutes 11 Occupational Therapy Visit Comments Patient Comments Pt states not feeling well and not wanting to shower at this time. Patient/Caregiver Goals TO go home. OT Pain Assessment Pain When Pain Assessed At Rest Pain Present Pain Present Pain Reported Location Low Back Intensity 6 Scale Used Numeric (0 - 10) M4 OT- IP ADL's Start: 11/07/20 17:51 Freq: Status: Active Protocol: Document 11/08/20 10:26 [facility] (Rec: 11/08/20 10:32 [facility] [id number]) OT [id number] Comments OT Self-Feeding Comments NOt at meal time, no issues OT ADL-Grooming Comments OT Grooming Comments Not performed. OT ADL-Oral Care Comments Oral Care Comments NOt performed. OT ADL-Dressing Comments OT Dressing Comments Re-educated o use of LB dressing equipment and pt issued items. OT ADL-Toileting Comments OT Toileting Comments NOt having to go. OT ADL-Bathing Comments OT Bathing Comments Pt refused at this time and agreed that a shower chair at home would be helpful to have. M5 OT- IP IADL's Start: 11/07/20 17:51 Freq: Status: Active Protocol: Document 11/07/20 15:16 [facility] (Rec: 11/07/20 18:31 [facility] [id number]) OT-Instrumental Activities of Daily Living Home Safety Awareness Awareness of Need for Assistance at Home Good Awareness Ability to Problem Solve Emergency Able to Problem Solve Situations Medication Management Medication Management Comments Pt a bit groggy and aware to double check or have supervision when taking his medications. Money Management Money Management Comments Pt a bit groggy and aware to double check or have supervision when paying bills. Meal Preparation Meal Preparation Caregiver Provides Assist Machine Baster Machine Baster Caregiver Provides Assist M6 OT- IP Functional Cognition Start: 11/07/20 17:51 Freq: Status: Active Protocol: Document 11/08/20 10:26 [facility] (Rec: 11/08/20 10:32 [facility] [id number]) Cognitive Factors Limiting Selfcare Function Cognitive Comments Cognitive Assessment Comments Pt not feeling well but able to states good understanding for all back precaution needs for ADl's. Pt to have hired assist at home to help. M7 OT- IP Mobility and Balance Start: 11/07/20 17:51 Freq: Status: Active Protocol: Document 11/07/20 15:16 [facility] (Rec: 11/07/20 18:31 [facility] [id number]) OT- Bed Mobility Assessment Rolling Type of Rolling Roll to Left Level of Assistance Standby Assistance Supine to Sit Supine to Sit Assist Standby Assistance Sit to Supine Sit to Supine Assist Standby Assistance OT-Transfer Assessment Sit to and From Stand Sit to and from Stand Standby Assistance Transfers Transfer Ability Standby Assistance Technique Transfer Destination Bed,Toilet Transfer Technique Stand Step Pivot Devices Transfer Assistive Devices Gait Belt,Front Wheeled Walker Comments Mobility Comments SBA with FWW, vc for safety awareness to keep the FWW close. OT- Balance Assessment Sitting Balance and Reactions Static Sitting Balance Ability Normal Dynamic Sitting Balance Ability Good Standing Balance and Reactions Static Standing Balance Ability Good M8 OT- IP Objective Assessments Start: 11/07/20 17:51 Freq: Status: Active Protocol: Document 11/07/20 15:16 [facility] (Rec: 11/07/20 18:31 [facility] [id number]) OT-Muscle Tone Assessment Muscle Tone WNL Yes M9 OT- IP Assessment and Plan Start: 11/07/20 17:51 Freq: Status: Active Protocol: Document 11/08/20 10:26 [facility] (Rec: 11/08/20 10:32 [facility] [id number]) OT Summary Assessment and Plan Potential Rehabilitation Potential Good Analytic Complexity at Evaluation Low Summary OT Impairments Functional Cognition, Functional Mobility,Grooming, Dressing,Toileting,Bathing, Toilet Transfers,Shower Transfers Progress Towards Goals Progressing Toward Goals Assessment Summary Pt not feeling well but overall doing well from back surgery with mobility and ADl needs. Pt not wanting to shower this morning and just wanting to rest for now and hopefully to go home later this PM. Nursing aid states to assist pt with shower if needed. Pt agrees best to have a shower chair at home to use . Goals Days to Meet Goals 1 Frequency of Treatment Frequency Of Treatment Once a Day Treatment Plan OT Treatment Plan ADL Training,Functional Cognition Training,Functional Mobility,Patient/Family Education,Discharge Planning Other Treatment Recommendations and Next shower Treatment Focus Discharge Recommendations OT Discharge Recommendations Home with Assistance Home Equipment Needs Shower chair, letter sorting machine operator, long handled shoe horn, sock aid Transportation Needs at Discharge Private Vehicle
--- NOTE | 2020-11-08 11:17 | PT-IP ANOTE ---
Attempted to see patient at 11:17, patient refusing therapy d/t not feeling well states he is not sure he needs further PT at this time, but will attempt again this PM.
--- NOTE | 2020-11-08 11:25 | PC.NURSE ---
Assess- Patient complained of pain to his lower back 07/02, given oxycodone that has been effective for pain control. He was sitting up in the chair and states that he just was not feeling well. OT was going to help him shower but he wanted to lay down, states that he just does not feel well. His temp is wnl, Dr. Saleh called and said that if patients pain controlled that he might be able to go home later, also depending on how he does with physical therapy. Dressing to l.side is cdi from graft/harvest site and lower dressing is cdi. Dressings will be changed before patient does go home.
--- NOTE | 2020-11-08 13:23 | PT-IP ANOTE ---
Attempted to see patient at 13:23, he refused therapy services today and is requesting to rest d/t fever and not feeling well. Will check back with patient tomorrow AM.
[2020-11-08] MEDS: ROSUVASTATIN 10 MG TABLET 20 MG PO (17:14)
[2020-11-08] MEDS: CHOLECALCIFEROL (VITAMIN D3) 1,000 UNIT TABLET 1000 UNIT PO (17:17)
--- NOTE | 2020-11-08 17:40 | OT.IP.TRT ---
Current Diagnoses Other forms of scoliosis, lumbar region (11/06/20) Spinal stenosis, lumbar region with neurogenic claudication (11/06/20) Surgery Performed Operation Date: 11/06/20 07:45 Actual Procedures p L3-S1 laminectomies & instrumented anterior/posterior fusion w/ bone graft - Miguel Angel Saleh MD Occupational Therapy Treatment Note M2 OT-IP Current Condition Start: 11/07/20 17:51 Freq: Status: Active Protocol: Document 11/07/20 15:16 [facility] (Rec: 11/07/20 18:31 [facility] [id number]) Occupational Therapy Current Condition Current Condition Evaluation Date 11/07/20 Treatment Diagnosis s/p L3-S1 laminectomies and instrumental ant/post. fusion w/bone graft Diagnosis Onset Date 11/06/20 Post Operative Precautions Lumbar Precautions Log Roll,No Twisting,Limit Bending,Lifting Restriction of 10 lbs,Gait Belt above Incisional Area M3 OT- IP Subjective and Pain Start: 11/07/20 17:51 Freq: Status: Active Protocol: Document 11/08/20 17:44 [facility] (Rec: 11/08/20 17:52 [facility] [id number]) OT- Subjective Occupational Therapy Visit Type Type Treatment Note Visit Start Time 17:30 Visit Stop Time 17:43 Total Visit Minutes 13 Occupational Therapy Visit Comments Patient Comments Pt stopped therapist as now wanting to get up to walk as earlier refused to work with PT twice due to not feeling well. Therefore OT added visit today to assess to see how pt is doing. Patient/Caregiver Goals TO go home. OT Pain Assessment Pain When Pain Assessed During Mobility Pain Present Pain Present Pain Reported M4 OT- IP ADL's Start: 11/07/20 17:51 Freq: Status: Active Protocol: Document 11/08/20 10:26 [facility] (Rec: 11/08/20 10:32 [facility] [id number]) OT [id number] Comments OT Self-Feeding Comments NOt at meal time, no issues OT ADL-Grooming Comments OT Grooming Comments Not performed. OT ADL-Oral Care Comments Oral Care Comments NOt performed. OT ADL-Dressing Comments OT Dressing Comments Re-educated use of LB dressing equipment and pt issued items. OT ADL-Toileting Comments OT Toileting Comments NOt having to go. OT ADL-Bathing Comments OT Bathing Comments Pt refused at this time and agreed that a shower chair at home would be helpful to have. M6 OT- IP Functional Cognition Start: 11/07/20 17:51 Freq: Status: Active Protocol: Document 11/08/20 17:44 [facility] (Rec: 11/08/20 17:52 [facility] [id number]) Cognitive Factors Limiting Selfcare Function Cognitive Ability Level of Alertness Alert Patient Orientation Name,Age,Birthday,Month,Date, Year,Day of Week,Place, Situation Attention Span Ability Capable of Focused Attention, Capable of Sustained Attention Ability to Follow Commands Able to Follow One Step Commands Memory Description No Deficits Noted Safety Awareness No Deficits Noted Problem Solving Ability No deficits Noted Cognitive Comments Cognitive Assessment Comments Pt able to follow back precaution safely during bed mobility and transfer. M7 OT- IP Mobility and Balance Start: 11/07/20 17:51 Freq: Status: Active Protocol: Document 11/08/20 17:44 [facility] (Rec: 11/08/20 17:52 [facility] [id number]) OT- Bed Mobility Assessment Rolling Type of Rolling Roll to Right Level of Assistance Standby Assistance,Bedrails Supine to Sit Supine to Sit Assist Standby Assistance Sit to Supine Sit to Supine Assist Standby Assistance OT-Transfer Assessment Sit to and From Stand Sit to and from Stand Standby Assistance Transfers Transfer Ability Standby Assistance Technique Transfer Destination Bed Transfer Technique Stand Step Pivot Devices Transfer Assistive Devices Gait Belt,Front Wheeled Walker Comments Mobility Comments Heavy use of grab bar to get up from the bed, pt would benefit from a bed rail at home to increase his ease to get up. HOwever pt states may just sleep in his recliner initially. OT- Gait Assessment Comments Gait Ability Comments SBA with FWW and heavy use of arms on the FWW pt able to walk 100ft with FWW. OT- Balance Assessment Sitting Balance and Reactions Static Sitting Balance Ability Normal Dynamic Sitting Balance Ability Good Standing Balance and Reactions Static Standing Balance Ability Good M8 OT- IP Objective Assessments Start: 11/07/20 17:51 Freq: Status: Active Protocol: Document 11/07/20 15:16 [facility] (Rec: 11/07/20 18:31 [facility] [id number]) OT-Muscle Tone Assessment Muscle Tone WNL Yes M9 OT- IP Assessment and Plan Start: 11/07/20 17:51 Freq: Status: Active Protocol: Document 11/08/20 17:44 [facility] (Rec: 11/08/20 17:52 [facility] [id number]) OT Summary Assessment and Plan Potential Rehabilitation Potential Good Analytic Complexity at Evaluation Low Summary OT Impairments Functional Mobility,Grooming, Dressing,Toileting,Bathing, Toilet Transfers,Shower Transfers,Activity Tolerance Progress Towards Goals Progressing Toward Goals Assessment Summary Pt wanting to get up as not feeling well earlier to work with PT today, therefore added another visit today to assess to see how pt is moving and to review his safety and carry over for his back precautions. Pt agreed to shower tomorrow and practice LB dressing equipment with OT and looking to go home tomorrow. Goals Grooming Goal Independent Dressing Goal Independent Toileting Goal Independent Bathing Goal Independent Toilet Transfer Goal Independent Shower Transfer Goal Independent Patient/Caregiver Education Goal Demonstrate Post-Op Precautions,Caregiver Independent Assisting Patient Days to Meet Goals 1 Frequency of Treatment Frequency Of Treatment Twice a Day Treatment Plan OT Treatment Plan ADL Training,Functional Mobility,Patient/Family Education,Discharge Planning Other Treatment Recommendations and Next shower Treatment Focus Discharge Recommendations OT Discharge Recommendations Home with Assistance Home Equipment Needs Shower chair, bed rail Transportation Needs at Discharge Private Vehicle
[2020-11-08] MEDS: atenoloL 50 MG TABLET PO (20:51)
[2020-11-08] MEDS: SENNOSIDES 8.6 MG TABLET 17.2 MG PO (20:51)
[2020-11-08] MEDS: GABAPENTIN 600 MG TABLET PO (20:51)
[2020-11-09] VITALS: BP 122/61; PULSE 72; RESP 18; TEMP 37; O2SAT 96
[2020-11-09 04:00] VITALS: BP 124/60; PULSE 79; RESP 17; TEMP 37.3; O2SAT 97
[2020-11-09 04:02] VITALS: TEMP 38.4
[2020-11-09] MEDS: OXYCODONE IR 5 MG TABLET PO ×3 (04:02→14:07)
--- NOTE | 2020-11-09 04:08 | PC.NURSE ---
Dressing to lumbar region outlined with shadow border markings. [id number] up to bathroom, pain med given.
[2020-11-09 08:13] VITALS: BP 139/62; PULSE 78; RESP 16; TEMP 36.7; O2SAT 98
--- NOTE | 2020-11-09 09:40 | PT.IPTN ---
Current Diagnoses Other forms of scoliosis, lumbar region (11/06/20) Spinal stenosis, lumbar region with neurogenic claudication (11/06/20) Surgery Performed Operation Date: 11/06/20 07:45 Actual Procedures p L3-S1 laminectomies & instrumented anterior/posterior fusion w/ bone graft - Miguel Angel Saleh MD Physical Therapy Treatment Note M2 PT-IP Current Condition Start: 11/06/20 15:10 Freq: NEEDED Status: Active Protocol: Document 11/07/20 09:48 [facility] (Rec: 11/07/20 12:12 [facility] [id number]) Physical Therapy Current Condition Current Condition Evaluation Date 11/07/20 Treatment Diagnosis s/p L3-4/L4-5 anterior/post. fusion; difficulties in walking Onset Date 11/06/20 Precautions Lumbar Precautions Log Roll,No Twisting,Limit Bending,Lifting Restriction of 10 lbs,Gait Belt above Incisional Area M3 PT-IP Subjective Start: 11/06/20 15:10 Freq: NEEDED Status: Active Protocol: Document 11/09/20 09:40 [facility] (Rec: 11/09/20 11:35 [facility] [id number]) Subjective Physical Therapy Visit Type Type Treatment Note Visit Start Time 09:40 Visit Stop Time 09:52 Total Visit Minutes 12 Number of DIPLOMA DENTAL ASSISTANT Visits 0 Physical Therapy Visit Comments Patient Comments pt is agreeable to do PT Therapy Pain Assessment Pain When Pain Assessed At Rest Location Low Back Scale Used pain scale not stated Pain Management Techniques Distraction,Modification of Treatment,Re-positioning, Timing of Activity with Medications M4 PT-IP Mobility and Gait Start: 11/06/20 15:10 Freq: NEEDED Status: Active Protocol: Document 11/09/20 09:40 [facility] (Rec: 11/09/20 11:35 [facility] [id number]) PT-Bed Mobility Assessment Rolling Type of Rolling Log Rolling Level of Assist Standby Assistance Sit to Supine Sit to Supine Standby Assistance PT-Transfer Assessment Sit to and From Stand Sit to and from Stand Standby Assistance Equipment Transfer Assistive Device Gait Belt,Front Wheeled Walker Orthotic/Prosthetic Devices or Brace: No Gait Assessment Gait Gait Assistance Required: Standby Assistance Distance (Feet) 150 Able to Maintain Weight Bearing Status Yes During Gait Assistive Devices Assistive Device Gait Belt,Front Wheeled Walker Orthotic/Prosthetic Devices or Brace: No Gait Deviations General Gait Pattern Antalgic,Decreased Stride Length,Decreased Feet Clearance Factors Limiting Gait Function Factors Limiting Gait Function Decreased Activity Tolerance, Decreased Strength,Limited Range of Motion,Pain,Poor Balance Comments Gait Comments pt sitting on EOB and agreed to do PT. completed sit to stand sBA and ambulated using fWW ~ 150. completed up/down steps using SPC CGA. ambulated back to room SBA using FWW. requested to go back to bed and completed sit to supine SBA. positioned in bed. call light and table placed within reach. Stair Climbing Assessment Evaluation Level of Assist On Stairs Contact Guard Assistance Devices Stair Climbing Assistive Devices Straight Cane Technique/Endurance Stair Climbing Direction Ascend and Descend Stair Climbing Technique Step to Step Number of Steps Climbed 3 Stair Climbing Set # Repetitions (reps) 1 M5 PT-IP Objective Assessments Start: 11/06/20 15:10 Freq: NEEDED Status: Active Protocol: Document 11/07/20 09:48 [facility] (Rec: 11/07/20 12:12 [facility] Orientation Orientation/Cognition Level of Alertness Alert Orientation Name,Place,Situation Language Function Ability No Deficits Noted Safety Awareness Understands Safety Issues Memory Description No Deficits Noted Gross Range of Motion Lower Extremity ROM Assessment Within Functional Limits Strength Lower Extremity Strength Assessment Within Functional Limits Sensation Assessment Sensation Gross Sensation WNL Muscle Tone Muscle Tone WNL Yes M6 PT-IP Treatment Start: 11/06/20 15:10 Freq: NEEDED Status: Active Protocol: Document 11/09/20 09:40 [facility] (Rec: 11/09/20 11:35 [facility] Physical Therapy Treatment Education Education Provided Precautions,Safety M7 PT-IP Assessment and Plan Start: 11/06/20 15:10 Freq: NEEDED Status: Active Protocol: Document 11/09/20 09:40 [facility] (Rec: 11/09/20 11:35 [facility] [id number]) PT Summary Assessment and Plan Potential Rehabilitation Potential Good Summary Impairments Pain,ROM,Strength,Balance, Coordination,Cognition,Bed Mobility,Transfers,Gait, Activity Tolerance Progress Towards Goals Progressing Toward Goals Assessment Summary pt requiring SBA with mobility and plans to go home with son to assist him. pt may go home when medically stable. Goals Bed Mobility Goal Independent Transfer Goal Independent,Front Wheeled Walker Gait Goal Independent,Front Wheel Walker Gait Distance 200 Other Goals up/down 3 steps using SPC SBA Days to Meet Goals 5 Frequency of Treatment Frequency Of Treatment Twice a Day Treatment Plan Physical Therapy Treatment Plan Bed Mobility Training,Transfer Training,Gait Training, Therapeutic Exercise,Balance Retraining,Post Op Education, Discharge Planning,Hot or Cold Pack,Neuromuscular Re-ed, Coordination Retraining,Manual Therapy Other Recommendations and Next Treatment ambulation, bed mobility, Focus stair climbing Recommendations To Nursing Amount of Assist Needed 1 Person Assist Discharge Recommendations PT Discharge Recommendations Home with Assistance Transportation Needs at Discharge Private Vehicle
[2020-11-09] MEDS: DOCUSATE 100 MG CAPSULE PO (09:42)
[2020-11-09] MEDS: EZETIMIBE 10 MG TABLET PO (09:42)
--- NOTE | 2020-11-09 09:58 | PC.NURSE ---
Patient is A&Ox3, back dressing and s.dressing changed to coversites. Both cdi s any drainage. Patient has been up ambulating with PT/ he is also going to be taking a shower with the assistance of OT. Given 1 oxycodone for complaints of discomfort and this has been helpful for discomfort. He denies any numbness or tingling to extremities and states that overall he is feeling better.
--- NOTE | 2020-11-09 10:23 | P.PN_ITS ---
Subjective Subjective Date Patient Seen: 11/09/20 Time Patient Seen: 10:23 Interval history: He is doing much better today. He feels like he has energy. He is up and moving independently. Exam Vital Signs (past 8 hours): - 11/09/20 04:00 11/09/20 04:02 11/09/20 08:13 Temperature 99.2 F 101.1 F H 98.1 F Pulse Rate 79 78 Respiratory Rate 17 16 Blood Pressure 124/60 139/62 Pulse Oximetry 97 98 Oxygen Delivery Method Room Air Oxygen Flow Rate 0 Const Orientation: alert and oriented x3 Back/Spine/Pelvis Other: Dressing just change. CDI. 5/5 motor both lower extremities except minimal 5-/5 left hip flexor Objective Labs Result Diagrams: 11/07/20 05:00 [facility] Medical History (Updated 10/31/20 @ 12:24 by Yaz Priest RN) Actinic keratosis Arthritis CAD (coronary artery disease) Easy bruisability Erectile dysfunction GERD (gastroesophageal reflux disease) HLD (hyperlipidemia) HTN (hypertension) Hx of coronary angiogram (12/2007) Impaired fasting glucose Myocardial infarction (2007) Skin cancer Surgical History (Updated 10/31/20 @ 12:21 by Yaz Priest RN) History of arthroplasty of right shoulder History of arthroscopy of right shoulder History of surgery History of tonsillectomy History of vasectomy Hx of cardiac cath (12/2007) Hx of heart artery stent (2007) Social History household members: none Smoking Status: Former smoker alcohol intake: current Assessment & Plan Post-op Postoperative Procedures: Procedures Operation Date: 11/06/20 07:45 Actual Procedures Side Surgeon p L3-S1 laminectomies & instrumented anterior/posterior fusion w/ bone graft Miguel Angel Saleh MD He is doing much better. Discharge home today.
--- NOTE | 2020-11-09 10:24 | P.DS_ITS ---
History of Present Illness History of Present Illness Date Patient Seen: 11/09/20 Time Patient Seen: 10:25 Chief complaint: Extreme Lat Interbody Fusion/Laminectomy Narrative: 70-year-old male with pain in the back and radiation down the front and back of both legs. This has been going on for 6 years after an injury. It has been progressively worsening. 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 His spinal stenosis was so tight that pain management did not want to do an epidural injection. Discharge Providers Provider Date of admission: 11/06/20 06:14 Discharge Date: 11/09/20 Consults: 11/06/20 14:46 Consult to Occupational Therapy Evaluate & Treat Comment: Physician Instructions: Evaluate and treat Consult to Physical Therapy Evaluate & Treat Comment: Physician Instructions: Evaluate and Treat Discharge provider: Miguel Angel Saleh MD Summary Hospital Course Discharge Diagnosis: Lumbar stenosis with radiculopathy Lumbar scoliosis Hospital Course: Is brought to the operating room on 11/06/2020 where he underwent an L3 through S1 anterior posterior instrumented fusion with laminectomies. Postoperatively he was mobilizing with physical therapy. He was having issues with pain control and not feeling well for the 1st 2 days but by postoperative day 3. Was independent with ambulation feeling very good. Status at Discharge Cognitive/behavioral status at discharge: oriented Functional status at discharge: uses cane/walker Overall status at discharge: patient is progressing back to baseline Exam Vital Signs (past 8 hours): - 11/09/20 04:00 11/09/20 04:02 11/09/20 08:13 Temperature 99.2 F 101.1 F H 98.1 F Pulse Rate 79 78 Respiratory Rate 17 16 Blood Pressure 124/60 139/62 Pulse Oximetry 97 98 Oxygen Delivery Method Room Air Oxygen Flow Rate 0 Const Orientation: alert and oriented x3 Back/Spine/Pelvis Other: CDI. 5/5 motor both lower extremities except 5-/5 left hip flexor Objective Labs Result Diagrams: 11/07/20 05:00 [facility] Medical History (Updated 10/31/20 @ 12:24 by Yaz Priest RN) Actinic keratosis Arthritis CAD (coronary artery disease) Easy bruisability Erectile dysfunction GERD (gastroesophageal reflux disease) HLD (hyperlipidemia) HTN (hypertension) Hx of coronary angiogram (12/2007) Impaired fasting glucose Myocardial infarction (2007) Skin cancer Surgical History (Updated 10/31/20 @ 12:21 by Yaz Priest RN) History of arthroplasty of right shoulder History of arthroscopy of right shoulder History of surgery History of tonsillectomy History of vasectomy Hx of cardiac cath (12/2007) Hx of heart artery stent (2007) Social History household members: none Smoking Status: Former smoker alcohol intake: current Discharge Assessment & Plan Assessment and Plan Assessment: Lumbar stenosis with radiculopathy, now status post laminectomy and fusion Plan of Treatment: Discharge home Discharge Plan Discharge Plan Patient Disposition: Home Provider Discharge Comment: Follow-up 1.5 weeks Discharge orders & Medications Prescriptions: New docusate sodium [DOK] 100 mg Capsule 100 mg PO BID PRN (Reason: constipation) Qty: 30 RF: 0 hydroxyzine pamoate 25 mg Capsule 25 mg PO Q4HR PRN (Reason: spasms) Qty: 20 RF: 0 oxycodone 5 mg Tablet 5 mg PO Q3HR PRN (Reason: Pain, Moderate (4-6)) Qty: 25 RF: 0 Continued clopidogrel 75 mg Tablet 75 mg PO DAILY Qty: 0 RF: 0 cholecalciferol (vitamin D3) [Vitamin D3] 25 mcg (1,000 unit) Capsule 25 mcg PO QPM Qty: 0 RF: 0 acetaminophen 500 mg Tablet 1,000 mg PO Q6H PRN (Reason: Pain) RF: 0 atenolol 50 mg Tablet 50 mg PO BEDTIME RF: 0 ezetimibe 10 mg Tablet 10 mg PO DAILY RF: 0 rosuvastatin 20 mg Tablet 20 mg PO QPM RF: 0 gabapentin 300 mg Tablet 600 mg PO BEDTIME RF: 0 nitroglycerin 0.4 mg Tablet, Sublingual 0.4 mg SUBLINGUAL Q5-15M PRN (Reason: Chest Pain) RF: 0 Discontinued ibuprofen 800 mg Tablet 400 - 800 mg PO BID PRN (Reason: Pain) RF: 0 oxycodone-acetaminophen 5-325 mg Tablet 1 tab PO Q4-6H PRN (Reason: Pain) RF: 0
--- NOTE | 2020-11-09 10:47 | OT.IP.TRT ---
Current Diagnoses Other forms of scoliosis, lumbar region (11/06/20) Spinal stenosis, lumbar region with neurogenic claudication (11/06/20) Surgery Performed Operation Date: 11/06/20 07:45 Actual Procedures p L3-S1 laminectomies & instrumented anterior/posterior fusion w/ bone graft - Miguel Angel Saleh MD Occupational Therapy Treatment Note M2 OT-IP Current Condition Start: 11/07/20 17:51 Freq: Status: Active Protocol: Document 11/07/20 15:16 [facility] (Rec: 11/07/20 18:31 [facility] [id number]) Occupational Therapy Current Condition Current Condition Evaluation Date 11/07/20 Treatment Diagnosis s/p L3-S1 laminectomies and instrumental ant/post. fusion w/bone graft Diagnosis Onset Date 11/06/20 Post Operative Precautions Lumbar Precautions Log Roll,No Twisting,Limit Bending,Lifting Restriction of 10 lbs,Gait Belt above Incisional Area M3 OT- IP Subjective and Pain Start: 11/07/20 17:51 Freq: Status: Active Protocol: Document 11/09/20 11:07 [facility] (Rec: 11/09/20 11:21 [facility] [id number]) OT- Subjective Occupational Therapy Visit Type Type Treatment Note Visit Start Time 10:17 Visit Stop Time 10:47 Total Visit Minutes 30 Occupational Therapy Visit Comments Patient Comments Pt agreed to shower. Patient/Caregiver Goals TO go home. OT Pain Assessment Pain When Pain Assessed During Mobility Pain Present Pain Present Pain Reported Location Low Back Intensity 2 Scale Used Numeric (0 - 10) M4 OT- IP ADL's Start: 11/07/20 17:51 Freq: Status: Active Protocol: Document 11/09/20 11:07 [facility] (Rec: 11/09/20 11:21 [facility] [id number]) OT [id number] Comments OT Self-Feeding Comments NOt at meal time, no issues OT ADL-Grooming Comments OT Grooming Comments Not performed. OT ADL-Oral Care Comments Oral Care Comments NOt performed. OT ADL-Dressing General Eval Upper Body Dressing Ability Minimal Assistance Lower Body Dressing Ability Standby Assistance Areas Needing Assistance Button-Up Shirt/Blouse Assistive Devices Dressing Assistive Devices Plate Preparer,Sock Aid Comments OT Dressing Comments Assist to help get button front shirt over his right shoulder. Pt able to appropriately do LB dressing needs with use of manager learning and sock aid. OT ADL-Toileting Comments OT Toileting Comments NOt having to go. OT ADL-Bathing Bathing Type Bathing Type Shower General Evaluation Bathing Ability Minimal Assistance Areas Needing Assistance Wash/Dry Lower Extremities Devices Bathing Equipment Hand Held Shower Sprayer,Grab Bars Comments OT Bathing Comments It was determined pt would be much safer to sit for showering needs. Pt needing assist to wash/dry his back. Pt states will get a shower chair and have someone to assist him. M5 OT- IP IADL's Start: 11/07/20 17:51 Freq: Status: Active Protocol: Document 11/07/20 15:16 [facility] (Rec: 11/07/20 18:31 [facility] [id number]) OT-Instrumental Activities of Daily Living Home Safety Awareness Awareness of Need for Assistance at Home Good Awareness Ability to Problem Solve Emergency Able to Problem Solve Situations Medication Management Medication Management Comments Pt a bit groggy and aware to double check or have supervision when taking his medications. Money Management Money Management Comments Pt a bit groggy and aware to double check or have supervision when paying bills. Meal Preparation Meal Preparation Caregiver Provides Assist Parts Expediter Parts Expediter Caregiver Provides Assist M6 OT- IP Functional Cognition Start: 11/07/20 17:51 Freq: Status: Active Protocol: Document 11/09/20 11:07 [facility] (Rec: 11/09/20 11:21 [facility] [id number]) Cognitive Factors Limiting Selfcare Function Cognitive Ability Level of Alertness Alert Patient Orientation Name,Age,Birthday,Month,Date, Year,Day of Week,Place, Situation Attention Span Ability Capable of Focused Attention, Capable of Sustained Attention Ability to Follow Commands Able to Follow Multi-Step Commands Memory Description No Deficits Noted Safety Awareness Underestimates Need for Assistance Problem Solving Ability No deficits Noted Cognitive Comments Cognitive Assessment Comments Pt needing cues for safety awareness, to sit in order to take off his brief. VC to use the manager learning versus reach over to yuliet his pants. M7 OT- IP Mobility and Balance Start: 11/07/20 17:51 Freq: Status: Active Protocol: Document 11/09/20 11:07 [facility] (Rec: 11/09/20 11:21 [facility] [id number]) OT- Bed Mobility Assessment Rolling Type of Rolling Roll to Right Level of Assistance Standby Assistance Supine to Sit Supine to Sit Assist Standby Assistance Sit to Supine Sit to Supine Assist Standby Assistance OT-Transfer Assessment Sit to and From Stand Sit to and from Stand Standby Assistance Transfers Transfer Ability Standby Assistance Technique Transfer Destination Bed,Shower Stall Transfer Technique Stand Step Pivot Devices Transfer Assistive Devices Gait Belt,Front Wheeled Walker Comments Mobility Comments Pt able to get up and down from the bed without use of bed rail today. Pt able to walk better without heavy use of his arms on the armrest of the fww today. OT- Gait Assessment Comments Gait Ability Comments SBA with FWW and good safety. OT- Balance Assessment Sitting Balance and Reactions Static Sitting Balance Ability Normal Dynamic Sitting Balance Ability Good Standing Balance and Reactions Static Standing Balance Ability Good Dynamic Standing Balance Ability Fair M8 OT- IP Objective Assessments Start: 11/07/20 17:51 Freq: Status: Active Protocol: Document 11/07/20 15:16 [facility] (Rec: 11/07/20 18:31 [facility] [id number]) OT-Muscle Tone Assessment Muscle Tone WNL Yes M9 OT- IP Assessment and Plan Start: 11/07/20 17:51 Freq: Status: Active Protocol: Document 11/09/20 11:07 [facility] (Rec: 11/09/20 11:21 [facility] [id number]) OT Summary Assessment and Plan Potential Rehabilitation Potential Good Analytic Complexity at Evaluation Low Summary OT Impairments Functional Cognition, Functional Mobility,Grooming, Dressing,Toileting,Bathing, Toilet Transfers,Shower Transfers,Activity Tolerance Progress Towards Goals Progressing Toward Goals Assessment Summary Pt looking to go home today and initially states not going to have someone stay with him . Able to encourage pt and then agreed to have his son stay with him. Pt states to sleep in his recliner or adjustable bed. Pt states agrees to get a shower chair for increased safety in the shower. Frequency of Treatment Frequency Of Treatment Once a Day Treatment Plan OT Treatment Plan Functional Cognition Training, Patient/Family Education, Discharge Planning Discharge Recommendations OT Discharge Recommendations Home with Assistance Home Equipment Needs Shower chair Transportation Needs at Discharge Private Vehicle
--- NOTE | 2020-11-09 13:57 | CM.DPNOTE ---
DC Note Home today as patient had planned, w/family and cg to assist. Cleared by therapy team. 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 Discharged by Dr Saleh. JW
== END 2020-11-09 14:21 | disposition home or self-care (01) | DRG 455 ==
PROVIDERS: Admitting Provider Orthopaedic Surgery; Referring Provider Orthopaedic Surgery; Visit Provider Orthopaedic Surgery
PROC: 0SG00A0 Fusion of Lumbar Vertebral Joint with Interbody Fusion Device, Anterior Approach, Anterior Column, Open Approach (ICD-10-PCS; CPT 22558; principal; 2020-11-06 07:45)
DX: M48.062 Spinal stenosis, lumbar region with neurogenic claudication (principal); M41.86 Other forms of scoliosis, lumbar region; I10 Essential (primary) hypertension; E78.5 Hyperlipidemia, unspecified; I25.10 Atherosclerotic heart disease of native coronary artery without angina pectoris; G89.18 Other acute postprocedural pain; Z87.891 Personal history of nicotine dependence; Z20.828 Contact with and (suspected) exposure to other viral communicable diseases
CPT/HCPCS: 36415; 72100; 76000; 85014; 85018; 87635; 97116; 97161; 97165; 97530; 97535; C1776; C9803; J0330; J0595; J0690; J1100; J1170; J2250; J2274; J2405; J2704; J2765; J3010